=== PATIENT | female | born 1945 | race African-American/Black ===

== ENCOUNTER 2018-05-21 16:09 | Emergency (ER) | payer OTHER, BC ==
[2018-05-21 16:19] VITALS: TEMP 97.3; BMI 23.8
--- NOTE | 2018-05-21 17:19 | PDOC ---
Attending Attestation - Resident Resident Name: RobertKasi - ED Attending Attestation I have performed the following: I have examined & evaluated the patient, The case was reviewed & discussed with the resident, I agree w/resident's findings & plan, Exceptions are as noted - HPI HPI: 05/21/18 18:50 73F with a hx of hyperthyroidism, hypotension,s/p ablation in 2007 who presents for witnessed vasovagal syncope in the setting of stress caused by having an ingrown toenail pulled by her physician at 230pm. Denies chest pain, palpitations, dizziness, headache, and shortness of breath. She was in her usual state of health this morning went to the gym was was asymptomatic until receiving the injection at the [facility]. No recent diarrhea, melena, BPR, dysuria, frequency, hemoptysis, cough, leg swelling. - Physicial Exam PE: 05/21/18 18:31 GENERAL: The patient is awake, alert, and fully oriented, Nontoxic - in no acute distress. HEAD: Normocephalic, atraumatic. EYES: extraocular movements intact, sclera anicteric, conjunctiva clear. ENT: Normal voice, Moist mucous membranes. NECK: Normal range of motion, supple LUNGS: Breath sounds equal, clear to auscultation bilaterally. No wheezes, no rhonchi, no rales. HEART: Regular rate and rhythm, normal S1 and S2 without murmur, rub or gallop. ABDOMEN: Soft, nontender, normoactive bowel sounds. No guarding, no rebound. . No CVA tenderness EXTREMITIES: Normal range of motion, no edema. NEUROLOGICAL: No facial assymetry, Normal speech, moving all 4 extremities spontaneously and symmetrically PSYCH: Normal mood, normal affect. SKIN: Warm, Dry, normal turgor, - Medical Decision Making 05/21/18 17:18 73y hx of gluacoma presents with complaint of syncope. The patient was getting a procedure at the [facility] and pt notes she syncopized due to the pain. pt notes she was otherwise well this morning, went [employer] and swam. denies any associated cp, sob, palpitations, headache, diziness, fever/chills, cough, dysuria, frequency, melena/bpr. on exam pt well appearing in no idsress suspect vasovagal episode will ck lagbs to r/o anemia, metabolid derangement, ekg to screen for arrythmia will reassess, if neg, anticipate dc with pmd fu A portion of this note was documented by scribe services under my direction. I have reviewed the details of the note, within reason, and agree with the documentation with the following case summary and management plan written by me 05/21/18 18:49 labs are unremarkable patient's chest x-ray is negative for occult infiltrate chest EKG unremarkable discharge patient with PMD follow-up Heart Score/ECG Review - ECG Impressions Comment:: 05/21/18 18:28 Twelve-lead EKG was performed and reviewed by me. There is normal sinus rhythm with a normal rate. rate of 60- The axis is normal. The intervals are normal. There is normal R wave progression There are no ST or T wave abnormalities. Impression: Normal twelve-lead EKG
[2018-05-21] MEDS ORDERED: SODIUM CHLORIDE 1,000 ML IV STA (17:20)
[2018-05-21 17:24] LABS: BASO % 1.1 % (0-2.0); EOS % 0.9 % (0-4.5); HEMATOCRIT 36.5 % (32.4-45.2); HEMOGLOBIN 12.7 GM/dL (10.7-15.3); LYMPH % 24.8 % (8-40); MCH 31.5 pg (25.7-33.7); MCHC 34.7 g/dl (32.0-36.0); MEAN CELL VOLUME 90.8 fl (80-96); MEAN PLT VOLUME 8.1 fl (7.5-11.1); MONO % 11.3 % (3.8-10.2); NEUT % 61.9 % (42.8-82.8); PLATELET COUNT 211 K/MM3 (134-434); RBC 4.02 M/mm3 (3.60-5.2); RDW 14.1 % (11.6-15.6); WHITE BLOOD COUNT 4.9 K/mm3 (4.0-10.0)
[2018-05-21 17:36] LABS: INR 1.01 (0.83-1.09); PROTHROMBIN TIME (PATIENT) 11.9 SEC (9.7-13.0)
--- NOTE | 2018-05-21 17:46 | PDOC ---
History of Present Illness - General Chief Complaint: Syncope/Near Syncope Stated Complaint: Syncope/Near Syncope Time Seen by Provider: 05/21/18 16:57 History Source: Patient Exam Limitations: No Limitations - History of Present Illness Initial Comments: 05/21/18 17:42 Patient is 73F with history of glaucoma, hypothyroidism, chronic hypotension, s/ p ablation in 2007 here today complaining of syncope. Patient states that she was having a procedure done on her toe for an ingrown nail when the pain was so great she "passed out". Patient states that she can still remember everything that happened, and denies hitting head or any other trauma. Denies chest pain, shortness of breath, leg swelling. Patient states that she feels fine now. Patient states that she hadn't eaten anything today. Past History - Past Medical History Allergies/Adverse Reactions: Allergies Allergy/AdvReac Type Severity Reaction Status Date / Time No Known Allergies Allergy Verified 05/21/18 16:17 Cardiac Disorders: Yes COPD: No Thyroid Disease: Yes (hypo) Other medical history: glacoma - Surgical History Cardiac Surgery: Yes (ablation) Neurologic Surgery: Yes (back x 2) - Suicide/Smoking/Psychosocial Hx Smoking History: Never smoked Have you smoked in the past 12 months: No Information on smoking cessation initiated: No Hx Alcohol Use: No Drug/Substance Use Hx: No Review of Systems - Review of Systems Comments:: 05/21/18 17:44 GENERAL/CONSTITUTIONAL: No fever or chills. No weakness. HEAD, EYES, EARS, NOSE AND THROAT: No change in vision. No sore throat. CARDIOVASCULAR: No chest pain or shortness of breath RESPIRATORY: No cough, wheezing, or hemoptysis. GASTROINTESTINAL: No nausea, vomiting, diarrhea or constipation. GENITOURINARY: No dysuria, frequency, or change in urination. MUSCULOSKELETAL: No joint or muscle swelling or pain. No neck or back pain. SKIN: No rash NEUROLOGIC: No headache, vertigo, +loss of consciousness, no change in strength/ sensation. HEMATOLOGIC/LYMPHATIC: No anemia, easy bleeding, or history of blood clots. ALLERGIC/IMMUNOLOGIC: No hives or skin allergy. *Physical Exam - Vital Signs Last Vital Signs Temp Pulse Resp BP Pulse Ox 97.3 F L 70 18 96/46 L 99 05/21/18 16:17 05/21/18 16:17 05/21/18 16:17 05/21/18 16:17 05/21/18 17:17 - Physical Exam Comments: 05/21/18 17:44 GENERAL: Awake, alert, and fully oriented, in no acute distress HEAD: No signs of trauma, normocephalic, atraumatic EYES: PERRLA, EOMI, sclera anicteric, conjunctiva clear ENT: Auricles normal inspection, hearing grossly normal, nares patent, oropharynx clear without exudates. Moist mucosa NECK: Normal ROM, supple, no lymphadenopathy, JVD, or masses LUNGS: No distress, speaks full sentences, clear to auscultation bilaterally HEART: Regular rate and rhythm, normal S1 and S2, no murmurs, rubs or gallops, peripheral pulses normal and equal bilaterally. ABDOMEN: Soft, nontender, normoactive bowel sounds. No guarding, no rebound. No masses EXTREMITIES: Normal inspection, Normal range of motion, no edema. No clubbing or cyanosis. NEUROLOGICAL: Cranial nerves II through XII grossly intact. Normal speech, no focal sensorimotor deficits SKIN: Warm, Dry, normal turgor, no rashes or lesions noted. Moderate Sedation - Procedure Monitoring Vital Signs: Procedure Monitoring Vital Signs Temperature 97.3 F L 05/21/18 16:17 Pulse Rate 70 05/21/18 16:17 Respiratory Rate 18 05/21/18 16:17 Blood Pressure 96/46 L 05/21/18 16:17 O2 Sat by Pulse Oximetry (%) 99 05/21/18 17:17 ED Treatment Course - LABORATORY CBC & Chemistry Diagram: 05/21/18 17:10 05/21/18 17:10 - ADDITIONAL ORDERS Additional order review: Laboratory Results 05/21/18 17:10 PT with INR 11.90 INR 1.01 05/21/18 17:10 RBC 4.02 MCV 90.8 MCHC 34.7 RDW 14.1 MPV 8.1 Neutrophils % 61.9 Lymphocytes % 24.8 Monocytes % 11.3 H Eosinophils % 0.9 Basophils % 1.1 - RADIOLOGY Radiology Studies Ordered: Category Date Time Status CHEST PA & LAT [RAD] Stat Radiology 05/21/18 17:06 Ordered Medical Decision Making - Medical Decision Making 05/21/18 17:44 Patient is 73F with history of hypothyroidism, hypotension, s/p ablation here today with near-syncope. Vitals notable for hypotension, but patient feels fine. Strong vasovagal story for her syncope and patient has good follow up. Will evaluate with cbc, cmp, cxr, pt/inr, trop, ekg. Will give fluids and have patient eat. Likely discharge. 05/21/18 18:30 Laboratory Tests 05/21/18 05/21/18 05/21/18 17:10 17:10 17:10 WBC 4.9 Hgb 12.7 Plt Count 211 INR 1.01 BUN 27 H Creatinine 1.0 Troponin I < 0.02 CBC normal. CMP shows pre-renal CORBIN. Troponin undetectable. EKG shows normal sinus rhythm with rate of 60. No st elevations/depressions. Normal axis. Normal intervals. No significant t wave abnormalities. 05/21/18 18:49 CXR clear. Will discharge home. *DC/Admit/Observation/Transfer Diagnosis at time of Disposition: Syncope - Discharge Dispostion Disposition: HOME Condition at time of disposition: Good Decision to Admit order: No - Referrals - Patient Instructions Printed Discharge Instructions: DI for Syncope in Adults (Fainting) Additional Instructions: Please follow up with your primary care doctor this week. Please return immediately if you have any new, worsening or concerning symptoms , especially passing out, chest pain, and shortness of breath. Please drink more fluids, part of the reason you passed out today was dehydration. - Post Discharge Activity
[2018-05-21 17:51] LABS: ALBUMIN 3.5 g/dl (3.4-5.0); ALK PHOS 81 U/L (45-117); ANION GAP 6 MMOL/L (8-16); BILIRUBIN,TOTAL 0.4 mg/dL (0.2-1); BLOOD UREA NITROGEN 27 mg/dL (7-18); CALCIUM 8.7 mg/dL (8.5-10.1); CHLORIDE 107 mmol/L (98-107); CO2 26 mmol/L (21-32); GLUCOSE,RANDOM 102 mg/dL (74-106); MAGNESIUM 2.2 mg/dL (1.8-2.4); POTASSIUM 4.3 mmol/L (3.5-5.1); SGOT/AST 38 U/L (15-37); SGPT/ALT 44 U/L (13-61); SODIUM 139 mmol/L (136-145)
[2018-05-21 18:51] VITALS: BP 102/64; PULSE 76
--- NOTE | 2018-05-22 10:20 | EKG ---
Test Reason : Blood Pressure : / mmHG Vent. Rate : 060 BPM Atrial Rate : 060 BPM P-R Int : 168 ms QRS Dur : 070 ms QT Int : 412 ms P-R-T Axes : 058 032 046 degrees QTc Int : 412 ms NORMAL SINUS RHYTHM EARLY REPOLARIZATION NORMAL ECG NO PREVIOUS ECGS AVAILABLE Confirmed by RAYMUNDO US, DEEPAK ([id number]) on 05/22/2018 10:20:23 AM Referred By: Confirmed By:DEEPAK FONSECA MD
== END 2018-05-21 18:52 | disposition home or self-care (01) ==
LOC: JER 16:09
PROC: 3E0337Z Introduction of Electrolytic and Water Balance Substance into Peripheral Vein, Percutaneous Approach (ICD-10-PCS; principal; 2018-05-21)
DX: R55 Syncope and collapse (principal); I95.9 Hypotension, unspecified; E03.9 Hypothyroidism, unspecified
CPT/HCPCS: 36415; 71046-TC-FY; 80053; 82550; 82553; 83735; 84484; 85025; 85610; 93005; 93010; 99284-25; J7030